=== PATIENT | female | born 1975 | race Caucasian/White ===

== ENCOUNTER → 2016-09-22 | Outpatient (CLI) | payer MEDICAID ==
[~2016-09-22] MED LIST: AUGMENTIN 875-1 EACH PO; FLEXERIL10 MG PO; HYDROCODONE-APA1 TA2 PO; HYDROCODONE1 TABLET PO; IBU-8800 MG PO; KLONOPIN 0.5MG0.5 MG PO; LORTAB 5/3251 TAB PO; MEDROL 4MG. DOSE4 MG PO; NAPROSYN 500MG500 MG PO; NOMEDS; NORCO 325 MG-51 TAB PO; NORCO1 TAB PO; PERCOCET 325 MG1 TA3 PO; ULTRACET 325 MG1 TAB PO; VICODIN 5/500 T1 TAB PO; VOLTAREN75 MG PO
--- NOTE | 2016-09-22 15:27 | RADIOLOGY REPORT PS360 ---
US PELVIS-TRANSVAGINAL ONLY HISTORY: PELVIC PAIN,ENDOMETRIOSIS ORDERING PHYSICIAN: Taqueria Schaffer MD PATIENT AGE: 41 years COMPARISON: None FINDINGS: There has been previous hysterectomy and oophorectomy. Vaginal cuff has an unremarkable appearance. No pelvic mass or abnormal fluid collection evident. IMPRESSION: Status post hysterectomy and oophorectomy with no acute finding
== END ==
LOC: RAD 13:14
DX: R10.2 Pelvic and perineal pain (principal); N80.3 Endometriosis of pelvic peritoneum